=== PATIENT | female | born 1980 | race Caucasian/White ===

== ENCOUNTER 2017-03-30 08:34 | Inpatient (IN) | payer OTHER ==
--- NOTE | 2017-03-30 09:08 | OBPROG ---
Labor Progress Note Assessment/Plan: Assessment:irregular contractions pain well managed irregulkar contractions exam cl/th/high posterior soft ballotable on exam and leopolds cephalic nitrazine negative amnisure sent Plan:US wait for amnisure after these tests POC 03/30/17 09:07 Subjective/Intrapartum Course: 03/30/17 09:05 Patient came in with a complaint of srom at 0443 clear fluid described. States feeling positive movement. Denies bloody show. Denies regular painful contractions. Due for US today for growth. Will do here for mike and growth - SVE Dilation (cm): 0 Effacement (%): 0 Station: -3 - Contraction Pattern Assessment Current Contraction Pattern: Irregular - FHR Assessment Gonzalez FHR (bpm): 125 FHR Pattern Variability: Moderate FHR Category: 1 - Physical Exam General Appearance: WD/WN, alert, no apparent distress Respiratory: chest non-tender, lungs clear, normal breath sounds Cardiac/Chest: regular rate, rhythm Abdomen: normal bowel sounds Extremities: normal range of motion, Kera's sign (negative homens sign) Peripheral Pulses: 1+: carotid (R), carotid (L) (no clonus) Skin: normal color, warm/dry Neuro/Psych: no motor/sensory deficits, alert, normal mood/affect, oriented x 3 ICD10 Worksheet Patient Problems: Problems Problem Status Onset rom term/ labor check Acute
--- NOTE | 2017-03-30 09:57 | GHP ---
[f rep st] HISTORY AND PHYSICAL HISTORY OF PRESENT ILLNESS: The patient is a 36-year-old 1, para 0, with an EDC of 03/27/2017. This is 03/30/2017, so patient is 40-3/7 weeks, who comes in with complaints of rupture of membranes at 0443 this a.m. States feeling positive movement. Denies bloody show. Denies painful regular contractions. Feeling occasional tightening. Denies pain. The patient has been a routine patient of [facility] since early on in the at 8 weeks and 4 days. Had an early ultrasound which confirmed dates of 2016. MEDICAL HISTORY: History of anemia as a teen, anemic with at 34.6 at 28-week labs. SURGICAL HISTORY: Cholecystectomy in 2002. OTHER MEDICAL HISTORY: Patient is a vegetarian. HISTORY: Patient is AMA. The patient also had positive GBS in her urine so will be treated for GBS in . The patient was to have a growth ultrasound today for measuring large for dates. The patient came to Labor and Delivery for assessment of rupture of membranes so we will do growth ultrasound and CORINA here in Labor and Delivery. GYNECOLOGICAL HISTORY: History of OCP use, Depo-Provera, Mirena. Previous abnormal Paps. Had 1 or 2 of the Gardasil. Also has a history of candidiasis. SOCIAL HISTORY: Patient is . Denies tobacco history, drug history. ALLERGIES: NKDA. MEDICATIONS: Also vitamins with DHA. REVIEW OF SYSTEMS: Times 9 is benign. PHYSICAL EXAMINATION: GENERAL: The patient is awake, alert, oriented x3. LUNGS: Clear bilaterally. ABDOMEN: Bowel sounds are positive in all 4 quadrants. EXTREMITIES: DTRs are 1+ bilaterally. Homans sign is negative bilaterally. Patient denies PIH symptoms. PELVIC: Patient was closed, thick, high, posterior, soft, ballotable but cephalic on exam. Vault was dry. Nitrazine was negative. AmniSure was sent. LABS: Patient is AB positive. Antibody negative. RPR is nonreactive. Rubella is immune. Hepatitis is negative. HIV is negative. Carrier screening was negative. was negative. AFP was negative. Gonorrhea, chlamydia , and Pap were negative. 1-hour GTT was within normal limits. /[id number]/MODL MTDD
[2017-03-30] MEDS ORDERED: AMPICILLIN SODIUM 2 GM in NS 100 ML IV ONE (13:44)
[2017-03-30] MEDS ORDERED: TERBUTALINE SULFATE 1 MG/ML VIAL IV PRN (13:44)
[2017-03-30] MEDS ORDERED: EPSOM SALT 454 GM TP PRN (13:44)
[2017-03-30] MEDS ORDERED: LR 1,000 ML IV PRN (13:44)
[2017-03-30] MEDS ORDERED: OLIVE OIL 118 ML BTL MISC PRN (13:44)
[2017-03-30] MEDS ORDERED: OXYTOCIN/RINGERS LACTATE 1,000 ML IV PRN (13:44)
[2017-03-30] MEDS ORDERED: MISOPROSTOL 100 MCG TAB PO ONE (13:45)
--- NOTE | 2017-03-30 13:51 | OBPROG ---
Labor Progress Note Assessment/Plan: Assessment:irregular contractions pain well managed irregular contractions exam cl/th/high posterior soft ballotable on exam and leopolds cephalic 90% growth mike 9.7 discussed IOL cytotec, carbajal bulb, vs cervadil and carbajal bulb and pitocin patient and family verbalized understanding and desire to proceed with cytotec po consulted with physcian poc ok to proceed dr. eleuterio cook agrees with poc Plan:cytotec per protocol will begin with 50mcg 03/30/17 09:07 03/30/17 13:47 Subjective/Intrapartum Course: 03/30/17 09:05 Patient came in with a complaint of srom at 0443 clear fluid described. States feeling positive movement. Denies bloody show. Denies regular painful contractions. Due for US today for growth. Will do here for mike and growth 03/30/17 13:51 No change in patient demeanor. Agrees with poc to iol electively at 40.3 weeks ballotable 90% growth closed thick and high - SVE Dilation (cm): 0 Effacement (%): 0 Station: -3 Membranes: Intact - Contraction Pattern Assessment Current Contraction Pattern: Irregular - AP Antepartum Course: 40.3 ga today. early US has been with [facility] since early . Anxiety all else within normal limits. Today cervix remains closed thick high and posterior blattable. Consult with dr. eleuterio cook IOL 90% growth. Patient and family ok with POC IOl. 03/30/17 13:54 Oxytocin Orders Assessment - Pre-Induction/Augmentation Assessment Gestational Age: 40 week(s) and 3 day(s) ICD10 Worksheet Patient Problems: Problems Problem Status Onset rom term/ labor check Acute
[2017-03-30] MEDS ORDERED: AMMONIA AROMATIC 1 EACH AMP IH ONE (14:12)
[2017-03-30] MEDS ORDERED: LIDOCAINE 1% 300 MG/30 ML SDV ONE (14:12)
[2017-03-30] MEDS ORDERED: OLIVE OIL 118 ML BTL ONE (14:12)
[2017-03-30] MEDS ORDERED: TERBUTALINE SULFATE 1 MG/ML VIAL ONE (14:12)
[2017-03-30] MEDS ORDERED: MISOPROSTOL 200 MCG TAB ONE (14:13)
[2017-03-30] MEDS ORDERED: OXYTOCIN 10 UNIT/ML VIAL ONE (14:13)
[2017-03-30 14:45] LABS: % IMMATURE GRANULYOCYTES 0.9 % (0.0-1.1); ADD DIFF? NO; ADD MORPH? NO; ADD SCAN? NO; ATYPICAL LYMPHOCYTE FLAG 0 (0-99); FRAGMENT RBC FLAG 10 (0-99); HEMATOCRIT 41.2 % (38.0-47.0); HEMOGLOBIN 14.7 g/dL (12.6-16.3); LEFT SHIFT FLG 0 (0-99); LIPEMIA HEMOLYSIS FLAG 90 (0-99); MEAN CELL HEMOGLOBIN CONCENTR. 35.7 g/dL (32.4-36.7); MEAN CELL VOLUME 89.8 fL (81.5-99.8); MEAN PLATELET VOLUME 10.7 fL (8.7-11.7); PLATELET CLUMPS FLAG 10 (0-99); PLATELET COUNT 338 10^3/uL (150-400); RED BLOOD CELL COUNT 4.59 10^6/uL (4.18-5.33); RED CELL DISTRIBUTION WIDTH 13.3 % (11.5-15.2)
--- NOTE | 2017-03-30 18:15 | OBPROG ---
Labor Progress Note Assessment/Plan: Assessment:regular contractions q 3-4 minutes apart pain well managed cat 1 fhr exam /-1 90% growth mike 9.7 discussed IOL cytotec, carbajal bulb, vs cervadil and carbajal bulb and pitocin patient and family verbalized understanding and desire to proceed with cytotec po consulted with physcian poc ok to proceed dr. eleuterio cook agrees with poc able to place carbajal bulb without difficulty Plan:carbajal bulb placement/ low dose pitocin 03/30/17 09:07 03/30/17 13:47 03/30/17 18:15 Subjective/Intrapartum Course: cytotec 50mcg po x1 . Carbajal bulb placed at 3h after cytotec. exam 1cl/80/-1 cephalic tolerated procedure well. Will begin low dose pitocin per protocol 03/30/17 09:05 Patient came in with a complaint of srom at 0443 clear fluid described. States feeling positive movement. Denies bloody show. Denies regular painful contractions. Due for US today for growth. Will do here for mike and growth 03/30/17 13:51 No change in patient demeanor. Agrees with poc to iol electively at 40.3 weeks ballotable 90% growth closed thick and high 03/30/17 18:12 Feeling menstrual cramping. Coping well ready for carbajal placement. Objective: 03/30/17 14:00 Patient ABO/Rh AB POSITIVE 03/30/17 14:00 - SVE Membranes: Intact - Contraction Pattern Assessment Current Contraction Pattern: Regular, Irregular - FHR Assessment Gonzalez FHR (bpm): 140 FHR Pattern Variability: Moderate FHR Category: 1 - AP Antepartum Course: 40.3 ga today. early US has been with [facility] since early . Anxiety all else within normal limits. Today cervix remains closed thick high and posterior blattable. Consult with dr. eleuterio cook IOL 90% growth. Patient and family ok with POC IOl. 03/30/17 13:54 Oxytocin Orders Assessment - Pre-Induction/Augmentation Assessment Gestational Age: 40 week(s) and 3 day(s) ICD10 Worksheet Patient Problems: Problems Problem Status Onset rom term/ labor check Acute
[2017-03-30] MEDS ORDERED: OXYTOCIN 20 UNITS in LR 1,000 ML IV PRN (18:30)
[2017-03-30] MEDS ORDERED: OXYTOCIN 30 UNITS in LR 500 ML IV SCH (18:30)
--- NOTE | 2017-03-30 20:31 | OBPROG ---
Labor Progress Note Assessment/Plan: Assessment:regular contractions q 3-4 minutes apart pain well managed cat 1 fhr exam 4-5/80/-1 cephalic 90% growth mike 9.7 carbajal bulb dc'd with small amount of traction pitocin at 3mu will begin routine pitocin protocol Plan:pitocin per routine protocol 03/30/17 09:07 03/30/17 13:47 03/30/17 18:15 03/30/17 20:29 Subjective/Intrapartum Course: cytotec 50mcg po x1 . Carbajal bulb placed at 3h after cytotec. exam 1cl/80/-1 cephalic tolerated procedure well. Will begin low dose pitocin per protocol 03/30/17 09:05 Patient came in with a complaint of srom at 0443 clear fluid described. States feeling positive movement. Denies bloody show. Denies regular painful contractions. Due for US today for growth. Will do here for mike and growth 03/30/17 13:51 No change in patient demeanor. Agrees with poc to iol electively at 40.3 weeks ballotable 90% growth closed thick and high 03/30/17 18:12 Feeling menstrual cramping. Coping well ready for carbajal placement. Objective: 03/30/17 14:00 Patient ABO/Rh AB POSITIVE 03/30/17 14:00 - SVE Dilation (cm): 4, 5 Effacement (%): 80 Station: -1 Membranes: Intact - Contraction Pattern Assessment Current Contraction Pattern: Regular, Irregular - FHR Assessment Gonzalez FHR (bpm): 145 FHR Pattern Variability: Moderate FHR Category: 1 - AP Antepartum Course: 40.3 ga today. early US has been with [facility] since early . Anxiety all else within normal limits. Today cervix remains closed thick high and posterior blattable. Consult with dr. eleuterio cook IOL 90% growth. Patient and family ok with POC IOl. 03/30/17 13:54 Oxytocin Orders Assessment - Pre-Induction/Augmentation Assessment Gestational Age: 40 week(s) and 3 day(s) ICD10 Worksheet Patient Problems: Problems Problem Status Onset rom term/ labor check Acute
[2017-03-30] MEDS: AMPICILLIN SODIUM 1 GM in NS 100 ML IV SCH (21:46)
[2017-03-30] MEDS ORDERED: BUPIVACAINE 0.25% 30 ML SDV ONE (22:13)
[2017-03-30] MEDS ORDERED: fentaNYL 2MCG/ML/BUP 0.1% RTU 100 ML BAG EP ONE (22:13)
[2017-03-30] MEDS ORDERED: PHENYLEPHRINE HCL 100 MCG/ML SYR ONE (22:13)
[2017-03-30] MEDS ORDERED: fentaNYL 100 MCG/2 ML INJ ONE (22:14)
--- NOTE | 2017-03-30 23:07 | PREANESOB ---
Obstetric Pre-Anesthesia Info - General Info Proposed Procedure: labor : 1 Para: 0 CY: 03/27/17 Gestational Age: 40 week(s) and 3 day(s) - Info Status: Full Term Monitors: External FHR Pattern: Reassuring - Labor Status Cervical Dilation per last OB SVE: 4, 5 Station per last OB SVE: -1 Pitocin: In Use Indications for Labor Analgesia: Augmentation of Labor, Pain Control Labor Epidural: Yes Anesthesia Allergies/Adverse Reactions: Allergy/AdvReac Type Severity Reaction Status Date / Time No Known Allergies Allergy Unverified 03/30/17 08:58 Visit Medications: Generic Name Dose Route Start Last Admin Trade Name Freq PRN Reason Stop Dose Admin Ampicillin Sodium 1 gm/ Sodium 100 mls @ 200 mls/hr 03/30/17 17:45 Chloride IV 04/29/17 17:44 Q4H [facility] Protocol Lactated Ringer's 1,000 mls @ 0 mls/hr 03/30/17 13:44 03/30/17 21:36 Lr IV 09/26/17 13:43 1,000 mls PRN PRN Administration SEE PROTOCOL CONDITIONS Protocol Per Protocol Oxytocin 20 units/ Lactated 1,002 mls @ 150 mls/hr 03/30/17 18:30 Ringer's IV PRN PRN Post- bleeding Oxytocin 30 units/ Lactated 503 mls @ 0 mls/hr 03/30/17 18:30 Ringer's IV 09/26/17 18:29 CONT [facility] Protocol As Directed Ibuprofen 600 mg 03/30/17 13:44 Motrin PO 09/26/17 13:43 Q6HRS PRN post , inflammation Magnesium Sulfate 454 gm 03/30/17 13:44 Epsom Salt TP 09/26/17 13:43 Q1H PRN perineal discomfort Sinking Spring Oil 118 ml 03/30/17 13:44 Sweet Oil MISC 09/26/17 13:43 ONCE PRN perineal massage Terbutaline Sulfate 0.25 mg 03/30/17 13:44 Brethine IV 09/26/17 13:43 ONCE PRN Tachysystole Discontinued Medications Generic Name Dose Route Start Last Admin Trade Name Freq PRN Reason Stop Dose Admin Ammonia (Aromatic Spirit) Confirm 03/30/17 14:12 Ammonia Aromatic Administered 03/30/17 14:13 Dose 1 each IH .STK-MED ONE Bupivacaine HCl Confirm 03/30/17 22:13 Sensorcaine 0.25% Sdv Administered 03/30/17 22:14 Dose 30 ml .ROUTE .STK-MED ONE Ephedrine Sulfate Confirm 03/30/17 14:12 Ephedrine Sulfate Administered 03/30/17 14:13 Dose 50 mg .ROUTE .STK-MED ONE Fentanyl Confirm 03/30/17 22:14 Sublimaze Administered 03/30/17 22:15 Dose 100 mcg .ROUTE .STK-MED ONE Fentanyl/Bupivacaine HCl Confirm 03/30/17 22:13 Fentanyl/Bupivacaine/Ns 2 Mcg/Ml 0.1% (Premix Administered 03/30/17 22:14 Dose 100 ml EP .STK-MED ONE Ampicillin Sodium 2 gm/ Sodium 110 mls @ 220 mls/hr 03/30/17 13:44 03/30/17 21:35 Chloride IV 03/30/17 14:13 110 mls ONCE ONE Administration Protocol Oxytocin/Lactated Ringer's 1,000 mls @ 150 mls/hr 03/30/17 13:44 Pitocin 20 Units/Lr (Premix) IV PRN PRN Post- bleeding Lidocaine HCl Confirm 03/30/17 14:12 Lidocaine Hcl 1% Administered 03/30/17 14:13 Dose 300 mg .ROUTE .STK-MED ONE Misoprostol 50 mcg 03/30/17 13:45 03/30/17 14:21 Cytotec PO 03/30/17 13:46 50 mcg ONCE ONE Administration Misoprostol Confirm 03/30/17 14:13 Cytotec Administered 03/30/17 14:14 Dose 800 mcg .ROUTE .STK-MED ONE Sinking Spring Oil Confirm 03/30/17 14:12 Sweet Oil Administered 03/30/17 14:13 Dose 118 ml .ROUTE .STK-MED ONE Oxytocin Confirm 03/30/17 14:13 Pitocin Administered 03/30/17 14:14 Dose 40 unit .ROUTE .STK-MED ONE Phenylephrine HCl Confirm 03/30/17 22:13 Neosynephrine Administered 03/30/17 22:14 Dose 1,000 mcg .ROUTE .STK-MED ONE Terbutaline Sulfate Confirm 03/30/17 14:12 Brethine Administered 03/30/17 14:13 Dose 1 mg .ROUTE .STK-MED ONE - Anesthesia History Response to Local Anesthetics: Normal Anesthesia & Operative History: No Prior Problems (cholecystectomy) Family Anesthesia History: Negative - Social History Substance Use/Abuse: Denies - Vital Signs Height/Weight (Nursing): Height 165.1 cm Weight 86.636 kg Weight: 86.636 kg Height: 165.1 cm - Focused Exam Neck exam: FROM, increased neck circumference Pulmonary: no respiratory distress Cardiovascular: regular rate and rhythym Labs: 03/30/17 14:00 Patient ABO/Rh AB POSITIVE 03/30/17 14:00 - Plan Anesthetic Plan: epidural Consent Signed and on Chart: Yes Patient/Guardian Understands and Agrees to Plan: Yes Urgent/Emergent Case: Jeffrey hopkins completed preop but documented later for safe timely pt care General Comments: see also paper anesth eval for more complete version than meditech allows
[2017-03-30] MEDS ORDERED: NALOXONE HCL 0.4 MG/ML INJ IVP PRN (23:13)
[2017-03-30] MEDS ORDERED: ONDANSETRON 4 MG/2 ML VIAL IVP PRN (23:13)
[2017-03-30] MEDS ORDERED: PHENYLEPHRINE HCL 100 MCG/ML SYR IVP PRN (23:13)
--- NOTE | 2017-03-30 23:17 | OBPROG ---
Labor Progress Note Assessment/Plan: Assessment:regular contractions q 1-2/ tripling/ doubling pain well managed walking and in tub intially cat 2 fhr exam 5/100/0 cephalic 90% growth mike 9.7 pitocin at 10 mu to off srom clear fluid epidural in place for pain relief Plan:pitocin per routine protocol/ epidural for pain relief expectant management of labor 03/30/17 09:07 03/30/17 13:47 03/30/17 18:15 03/30/17 20:29 03/30/17 23:14 Subjective/Intrapartum Course: cytotec 50mcg po x1 . Carbajal bulb placed at 3h after cytotec. exam 1cl/80/-1 cephalic tolerated procedure well. Will begin low dose pitocin per protocol 03/30/17 09:05 Patient came in with a complaint of srom at 0443 clear fluid described. States feeling positive movement. Denies bloody show. Denies regular painful contractions. Due for US today for growth. Will do here for mike and growth 03/30/17 13:51 No change in patient demeanor. Agrees with poc to iol electively at 40.3 weeks ballotable 90% growth closed thick and high 03/30/17 18:12 Feeling menstrual cramping. Coping well ready for carbajal placement. Objective: 03/30/17 14:00 Patient ABO/Rh AB POSITIVE 03/30/17 14:00 - SVE Membranes: Intact - Contraction Pattern Assessment Current Contraction Pattern: Regular, Irregular - FHR Assessment Gonzalez FHR (bpm): 160 FHR Pattern Variability: Moderate FHR Category: 2 - AP Antepartum Course: 40.3 ga today. early US has been with [facility] [place] since early . Anxiety all else within normal limits. Today cervix remains closed thick high and posterior blattable. Consult with dr. eleuterio cook IOL 90% growth. Patient and family ok with POC IOl. 03/30/17 13:54 Oxytocin Orders Assessment - Pre-Induction/Augmentation Assessment Gestational Age: 40 week(s) and 3 day(s) ICD10 Worksheet Patient Problems: Problems Problem Status Onset rom term/ labor check Acute
[2017-03-30] MEDS ORDERED: LR 500 ML IV SCH (23:30)
[2017-03-30] MEDS ORDERED: fentaNYL 2MCG/ML/BUP 0.1% RTU 100 ML EP SCH (23:30)
[2017-03-31] MEDS ORDERED: ACETAMINOPHEN 500 MG TAB PO ONE ×2 (00:44→09:45)
[2017-03-31] MEDS: AMPICILLIN SODIUM 1 GM in NS 100 ML IV SCH ×3 (02:05→18:31)
--- NOTE | 2017-03-31 02:40 | OBPROG ---
Labor Progress Note Assessment/Plan: Assessment:regular contractions q 2-3 cat 2 fhr exam 7/100/0 cephalic 90% growth mike 9.7 pitocin at 8mu srom clear fluid epidural working well pain well managed Plan:pitocin per routine protocol/ epidural for pain relief expectant management of labor 03/30/17 09:07 03/30/17 13:47 03/30/17 18:15 03/30/17 20:29 03/30/17 23:14 03/31/17 02:38 Subjective/Intrapartum Course: cytotec 50mcg po x1 . Carbajal bulb placed at 3h after cytotec. exam 1cl/80/-1 cephalic tolerated procedure well. Will begin low dose pitocin per protocol 03/30/17 09:05 Patient came in with a complaint of srom at 0443 clear fluid described. States feeling positive movement. Denies bloody show. Denies regular painful contractions. Due for US today for growth. Will do here for mike and growth 03/30/17 13:51 No change in patient demeanor. Agrees with poc to iol electively at 40.3 weeks ballotable 90% growth closed thick and high 03/30/17 18:12 Feeling menstrual cramping. Coping well ready for carbajal placement. 03/31/17 02:40 doing well with the epidural . Pain well managed Objective: 03/30/17 14:00 Patient ABO/Rh AB POSITIVE 03/30/17 14:00 - SVE Dilation (cm): 7 Effacement (%): 100 Station: 0 Membranes: SROM Amniotic Fluid Color: Clear - Contraction Pattern Assessment Current Contraction Pattern: Regular, Irregular - AP Antepartum Course: 40.3 ga today. early US has been with [facility] since early . Anxiety all else within normal limits. Today cervix remains closed thick high and posterior blattable. Consult with dr. eleuterio cook IOL 90% growth. Patient and family ok with POC IOl. 03/30/17 13:54 Oxytocin Orders Assessment - Pre-Induction/Augmentation Assessment Gestational Age: 40 week(s) and 3 day(s) ICD10 Worksheet Patient Problems: Problems Problem Status Onset rom term/ labor check Acute
--- NOTE | 2017-03-31 05:51 | OBPROG ---
Labor Progress Note Assessment/Plan: Assessment:regular contractions q 2-3 cat 2 fhr exam 6-7/80/0 cephalic caput and molding pitocin to 10 mu tachysystole and then to 5mu adequete pattern until pitocin decreased and now mvus are 129 clear fluid continues epidural working well pain well managed questioning whether baby can fit Plan:consult with dr. eleuterio cook. 03/30/17 09:07 03/30/17 13:47 03/30/17 18:15 03/30/17 20:29 03/30/17 23:14 03/31/17 02:38 03/31/17 05:48 Subjective/Intrapartum Course: cytotec 50mcg po x1 . Carbajal bulb placed at 3h after cytotec. exam 1cl/80/-1 cephalic tolerated procedure well. Will begin low dose pitocin per protocol 03/30/17 09:05 Patient came in with a complaint of srom at 0443 clear fluid described. States feeling positive movement. Denies bloody show. Denies regular painful contractions. Due for US today for growth. Will do here for mike and growth 03/30/17 13:51 No change in patient demeanor. Agrees with poc to iol electively at 40.3 weeks ballotable 90% growth closed thick and high 03/30/17 18:12 Feeling menstrual cramping. Coping well ready for carbajal placement. 03/31/17 02:40 doing well with the epidural . Pain well managed Objective: 03/30/17 14:00 Patient ABO/Rh AB POSITIVE 03/30/17 14:00 - SVE Dilation (cm): 6, 7 Effacement (%): 80 Station: 0 Membranes: SROM Amniotic Fluid Color: Clear - Contraction Pattern Assessment Current Contraction Pattern: Regular - AP Antepartum Course: 40.3 ga today. early US has been with [facility] since early . Anxiety all else within normal limits. Today cervix remains closed thick high and posterior blattable. Consult with dr. eleuterio cook IOL 90% growth. Patient and family ok with POC IOl. 03/30/17 13:54 Oxytocin Orders Assessment - Pre-Induction/Augmentation Assessment Gestational Age: 40 week(s) and 3 day(s) ICD10 Worksheet Patient Problems: Problems Problem Status Onset rom term/ labor check Acute
--- NOTE | 2017-03-31 06:24 | OBPROG ---
Labor Progress Note Assessment/Plan: Assessment: 36 y/o @ 40 4/7 wks with LGA fetus for IOL Plan: s/p Cytotec x 1, carbajal bulb, low dose Pitocin and now currently on 8 mu of Pitocin FHTs - Cat II strip with intermittent variable decels IUPC was placed about 4 hours ago and mostly adequate but Pitocin was turned down by half secondary to tachysystole On exam, there is caput noted but she is about 8 cm Will try to titer Pitocin to get adequate ctx's and reassess in 2 hours GBS +, s/p abx x 3 doses 03/31/17 06:26 Subjective/Intrapartum Course: cytotec 50mcg po x1 . Carbajal bulb placed at 3h after cytotec. exam 1cl/80/-1 cephalic tolerated procedure well. Will begin low dose pitocin per protocol 03/30/17 09:05 Patient came in with a complaint of srom at 0443 clear fluid described. States feeling positive movement. Denies bloody show. Denies regular painful contractions. Due for US today for growth. Will do here for mike and growth 03/30/17 13:51 No change in patient demeanor. Agrees with poc to iol electively at 40.3 weeks ballotable 90% growth closed thick and high 03/30/17 18:12 Feeling menstrual cramping. Coping well ready for carbajal placement. 03/31/17 02:40 doing well with the epidural . Pain well managed 03/31/17 06:25 She is c/o MELVIN, but she already received Tylenol at 0300. Objective: 03/30/17 14:00 Patient ABO/Rh AB POSITIVE 03/30/17 14:00 - SVE Dilation (cm): 8 Effacement (%): 90 Station: 0 Membranes: SROM Amniotic Fluid Color: Clear - Contraction Pattern Assessment Current Contraction Pattern: Regular - FHR Assessment Gonzalez FHR (bpm): 140 FHR Pattern Variability: Moderate FHR Category: 2 (Intermittent variable decels noted) - AP Antepartum Course: 40.3 ga today. early US has been with [facility] since early . Anxiety all else within normal limits. Today cervix remains closed thick high and posterior ballotable. Consult with dr. Tati Revoal IOL 90% growth. Patient and family ok with POC IOl. 03/30/17 13:54 03/31/17 06:28 Oxytocin Orders Assessment - Pre-Induction/Augmentation Assessment Gestational Age: 40 week(s) and 3 day(s) ICD10 Worksheet Patient Problems: Problems Problem Status Onset rom term/ labor check Acute
--- NOTE | 2017-03-31 09:13 | OBPROG ---
Labor Progress Note Assessment/Plan: Assessment: Plan: Subjective/Intrapartum Course: cytotec 50mcg po x1 . Carbajal bulb placed at 3h after cytotec. exam 1cl/80/-1 cephalic tolerated procedure well. Will begin low dose pitocin per protocol 03/30/17 09:05 Patient came in with a complaint of srom at 0443 clear fluid described. States feeling positive movement. Denies bloody show. Denies regular painful contractions. Due for US today for growth. Will do here for mike and growth 03/30/17 13:51 No change in patient demeanor. Agrees with poc to iol electively at 40.3 weeks ballotable 90% growth closed thick and high 03/30/17 18:12 Feeling menstrual cramping. Coping well ready for carbajal placement. 03/31/17 02:40 doing well with the epidural . Pain well managed 03/31/17 06:25 She is c/o MELVIN, but she already received Tylenol at 0300. 03/31/17 09:10 patient examined at 7 am when i arrived. I examined her and she is 6-7/80/-2. Long discussion with patient. contractions were not adequate. pitocin had been stopped overnight due to tachysystole. havent been adequate yet. patient is exhausted but comfortable. has been able to sleep. discussed management options. will continue to increase pitocin and reexamine in several hours or sooner if indicated. Objective: 03/30/17 14:00 Patient ABO/Rh AB POSITIVE 03/30/17 14:00 - SVE Dilation (cm): 6, 7 Effacement (%): 80 Station: -2 Membranes: SROM Amniotic Fluid Color: Clear - Contraction Pattern Assessment Current Contraction Pattern: Regular - FHR Assessment Gonzalez FHR (bpm): 160 FHR Pattern Variability: Moderate FHR Category: 1 - AP Antepartum Course: 40.3 ga today. early US has been with [facility] early . Anxiety all else within normal limits. Today cervix remains closed thick high and posterior ballotable. Consult with dr. Tati Tomas IOL 90% growth. Patient and family ok with POC IOl. 03/30/17 13:54 03/31/17 06:28 Oxytocin Orders Assessment - Pre-Induction/Augmentation Assessment Gestational Age: 40 week(s) and 3 day(s) ICD10 Worksheet Patient Problems: Problems Problem Status Onset rom term/ labor check Acute
[2017-03-31] MEDS ORDERED: CEFAZOLIN 2 GM/DEXTROSE/100 ML BAG IV ONE (10:54)
[2017-03-31] MEDS ORDERED: fentaNYL 100 MCG/2 ML INJ ONE (11:07)
[2017-03-31] MEDS ORDERED: LIDO/EPI 2% **for epidural** 20 ML SDV ONE (11:07)
--- NOTE | 2017-03-31 11:28 | OBPROG ---
Labor Progress Note Assessment/Plan: Assessment: Plan: Subjective/Intrapartum Course: cytotec 50mcg po x1 . Carbajal bulb placed at 3h after cytotec. exam 1cl/80/-1 cephalic tolerated procedure well. Will begin low dose pitocin per protocol 03/30/17 09:05 Patient came in with a complaint of srom at 0443 clear fluid described. States feeling positive movement. Denies bloody show. Denies regular painful contractions. Due for US today for growth. Will do here for mike and growth 03/30/17 13:51 No change in patient demeanor. Agrees with poc to iol electively at 40.3 weeks ballotable 90% growth closed thick and high 03/30/17 18:12 Feeling menstrual cramping. Coping well ready for carbajal placement. 03/31/17 02:40 doing well with the epidural . Pain well managed 03/31/17 06:25 She is c/o MELVIN, but she already received Tylenol at 0300. 03/31/17 09:10 patient examined at 7 am when i arrived. I examined her and she is 6-7/80/-2. Long discussion with patient. contractions were not adequate. pitocin had been stopped overnight due to tachysystole. havent been adequate yet. patient is exhausted but comfortable. has been able to sleep. discussed management options. will continue to increase pitocin and reexamine in several hours or sooner if indicated. 03/31/17 11:24 pitocin is at 20 mu. having regular contractions with occasional spacing. IUPC doesnt seem to be adequately calculating MVU's. SVE 6/80/-2. long discussion with patient about options. patient is ready to be done. discussed status is reassuring but we are having a hard time getting contractions adequate. does not want to continue trying. desires PLTCS. due to suspected CPD will proceed with PLTCS. Objective: 03/30/17 14:00 Patient ABO/Rh AB POSITIVE 03/30/17 14:00 - SVE Dilation (cm): 6 Effacement (%): 80 Station: -2 Membranes: SROM Amniotic Fluid Color: Clear - Contraction Pattern Assessment Current Contraction Pattern: Regular - FHR Assessment Gonzalez FHR Pattern Variability: Moderate FHR Category: 1 - AP Antepartum Course: 40.3 ga today. early US has been with [facility] since early . Anxiety all else within normal limits. Today cervix remains closed thick high and posterior ballotable. Consult with dr. Tati Tomas IOL 90% growth. Patient and family ok with POC IOl. 03/30/17 13:54 03/31/17 06:28 Oxytocin Orders Assessment - Pre-Induction/Augmentation Assessment Gestational Age: 40 week(s) and 3 day(s) ICD10 Worksheet Patient Problems: Problems Problem Status Onset rom term/ labor check Acute
[2017-03-31] MEDS ORDERED: DEXAMETHASONE 4 MG/ML VIAL ONE (11:48)
[2017-03-31] MEDS ORDERED: ONDANSETRON 4 MG/2 ML VIAL ONE (11:49)
[2017-03-31] MEDS ORDERED: morphINE PF 5 MG/10 ML INJ ONE (11:50)
[2017-03-31] MEDS ORDERED: SCOPOLAMINE HYDROBROMIDE 1 MG/3 DAYS PATCH TD ONE ×2 (12:19→15:05)
[2017-03-31] MEDS ORDERED: BISACODYL 10 MG SUPP PR PRN (14:31)
[2017-03-31] MEDS ORDERED: PROMETHAZINE HCL 25 MG/ML INJ IVP PRN (14:31)
[2017-03-31] MEDS ORDERED: ACETAMINOPHEN 325 MG TAB PO PRN (14:31)
[2017-03-31] MEDS ORDERED: LACTULOSE 20 GM/30 ML UDCUP PO PRN (14:31)
[2017-03-31] MEDS ORDERED: MAGNESIUM HYDROXIDE 30 ML UDCUP PO PRN (14:31)
[2017-03-31] MEDS ORDERED: POLYETHYLENE GLYCOL 3350 17 GM PKT PO PRN (14:31)
[2017-03-31] MEDS ORDERED: SIMETHICONE 80 MG TAB CHEW PO PRN (14:31)
--- NOTE | 2017-03-31 14:40 | OBDEL ---
Info Type: Primary Presentation at Delivery: Vertex L&D Analgesia/Anesthesia Type: Epidural GBS+: No Intrapartum Medications: Generic Name Dose Route Start Last Admin Trade Name Freq PRN Reason Stop Dose Admin Ampicillin Sodium 1 gm/ Sodium 100 mls @ 200 mls/hr 03/30/17 17:45 03/31/17 10:00 Chloride IV 04/29/17 17:44 100 mls Q4H SIMÓN Administration Protocol Lactated Ringer's 1,000 mls @ 0 mls/hr 03/30/17 13:44 03/30/17 21:36 Lr IV 09/26/17 13:43 1,000 mls PRN PRN Administration SEE PROTOCOL CONDITIONS Protocol Per Protocol Discontinued Medications Generic Name Dose Route Start Last Admin Trade Name Freq PRN Reason Stop Dose Admin Acetaminophen 1,000 mg 03/31/17 00:44 03/31/17 00:50 Tylenol PO 03/31/17 00:45 1,000 mg ONCE ONE Administration Acetaminophen 1,000 mg 03/31/17 09:45 03/31/17 10:35 Tylenol PO 03/31/17 09:46 1,000 mg ONCE ONE Administration Ampicillin Sodium 2 gm/ Sodium 110 mls @ 220 mls/hr 03/30/17 13:44 03/30/17 21:35 Chloride IV 03/30/17 14:13 110 mls ONCE ONE Administration Protocol Misoprostol 50 mcg 03/30/17 13:45 03/30/17 14:21 Cytotec PO 03/30/17 13:46 50 mcg ONCE ONE Administration - Hospital Course Intrapartum: cytotec 50mcg po x1 . Carbajal bulb placed at 3h after cytotec. exam 1cl/80/-1 cephalic tolerated procedure well. Will begin low dose pitocin per protocol 03/30/17 09:05 Patient came in with a complaint of srom at 0443 clear fluid described. States feeling positive movement. Denies bloody show. Denies regular painful contractions. Due for US today for growth. Will do here for mike and growth 03/30/17 13:51 No change in patient demeanor. Agrees with poc to iol electively at 40.3 weeks ballotable 90% growth closed thick and high 03/30/17 18:12 Feeling menstrual cramping. Coping well ready for carbajal placement. 03/31/17 02:40 doing well with the epidural . Pain well managed 03/31/17 06:25 She is c/o MELVIN, but she already received Tylenol at 0300. 03/31/17 09:10 patient examined at 7 am when i arrived. I examined her and she is 6-7/80/-2. Long discussion with patient. contractions were not adequate. pitocin had been stopped overnight due to tachysystole. havent been adequate yet. patient is exhausted but comfortable. has been able to sleep. discussed management options. will continue to increase pitocin and reexamine in several hours or sooner if indicated. 03/31/17 11:24 pitocin is at 20 mu. having regular contractions with occasional spacing. IUPC doesnt seem to be adequately calculating MVU's. SVE 6/80/-2. long discussion with patient about options. patient is ready to be done. discussed status is reassuring but we are having a hard time getting contractions adequate. does not want to continue trying. desires PLTCS. due to suspected CPD will proceed with PLTCS. Indications for Delivery: Suspected Macrosomia Vaginal Delivery - Labor and Delivery Amniotic Fluid Color: Clear Operative Report - Delivery Pre-op Diagnoses: IUP 40 4/7 weeks, arrest of dilation and descent Post-op Diagnoses: same as preop plus occiput posterior History of Prior Section: No Nulliparous Prior to Delivery: Yes Indications for Current Section: Arrest of Descent, Arrest of Dilation Surgeon: Ling Francis Final Inspection Supervisor: Virginia Hoover Anesthesiologist: Siva Doherty Complications: Nucal Cord, Other (Specify) (post atony treated with methergine x 1, distended bladder) EBL: 1000 Data Gonzalez Delivery Date: 03/31/17 Delivery Time: 11:56 CY: 03/27/17 Gestational Age: 40 week(s) and 4 day(s) Sex of Infant: Female Score (1 Min): 8 Score (5 Min): 9 ICD10 Worksheet Patient Problems: Problems Problem Status Onset rom term/ labor check Acute
[2017-03-31] MEDS ORDERED: KETOROLAC 30 MG/1 ML SDV ONE (14:44)
[2017-03-31] MEDS ORDERED: PHENYLEPHRINE HCL 100 MCG/ML SYR IVP PRN (14:53)
[2017-03-31] MEDS ORDERED: ONDANSETRON 4 MG/2 ML VIAL IVP PRN (14:53)
[2017-03-31] MEDS ORDERED: NALOXONE HCL 0.4 MG/ML INJ IVP PRN (14:53)
[2017-03-31] MEDS: KETOROLAC 30 MG/1 ML SDV IVP SCH ×2 (14:56→21:00)
--- NOTE | 2017-03-31 15:03 | POSTANESTH ---
Post Anesthetic Evaluation Cardiovascular Status: Normal, Stable Respiratory Status: Normal, Stable Level of Consciousness/Mental Status: Can Participate in Eval Pain Control: Adequate, Prn Tx Ordered Nausea/Vomiting Control: Adequate, Prn Tx Ordered Complications Possibly Related to Anesthesia: None Noted (Epidural dosed for C Section, to OR, BP treated, comfortable for surgery, to PACU, no pain or nausea. )
[2017-03-31] MEDS: HYDROCODONE/APAP 5/325 TAB PO PRN (18:15)
[2017-03-31] MEDS ORDERED: ceFAZolin 2 GM/DEXTROSE 100 ML IV ONE (18:17)
--- NOTE | 2017-03-31 18:28 | OBPP ---
Progress Note Assessment/Plan: Assessment: pod# 0 2/p PLTCS arrest of descent and dilation breast feeding bladder very cephalad noted at time of delivery Plan: routine post care 03/31/17 18:25 Subjective/ Course: 03/31/17 18:27 patient is doing well. pain is well controlled. normal lochia. working on breast feeding. tolerating clears. resting in bed. denies headache and changes in vision. Objective: 03/30/17 14:00 Patient ABO/Rh AB POSITIVE 03/30/17 14:00 Temp Pulse Resp BP Pulse Ox 37.3 C 82 16 105/74 95 03/31/17 18:00 03/31/17 18:00 03/31/17 18:00 03/31/17 18:00 03/31/17 18:00 Physical Exam - Physical Exam Neck: non-tender, full range of motion, supple Respiratory: chest non-tender, lungs clear, normal breath sounds Cardiac/Chest: normal peripheral pulses, regular rate, rhythm Abdomen: normal bowel sounds, non-tender Extremities: normal range of motion, non-tender, normal inspection, normal capillary refill Skin: normal color, warm/dry Neuro/Psych: no motor/sensory deficits, alert, normal mood/affect, oriented x 3
--- NOTE | 2017-03-31 20:41 | GOP ---
[f rep st] OPERATIVE REPORT DATE OF OPERATION: 03/31/2017 SURGEON: Ling Francis DO FRAME CHANGER: CHAVEZ Cardoso. ANESTHESIA: Epidural. ANESTHESIOLOGIST: Siva Doherty MD. PREOPERATIVE DIAGNOSIS: 1. Intrauterine at 40 and 4/7 weeks' gestation. 2. Arrest of dilation. 3. Arrest of descent. POSTOPERATIVE DIAGNOSIS: 1. Intrauterine at 40 and 4/7 weeks' gestation. 2. Arrest of dilation. 3. Arrest of descent. 4. Occiput posterior. 5. atony treated with Methergine x1. PROCEDURE PERFORMED: Primary low transverse section. FINDINGS: 1. Viable 8 pounds 2 ounce female infant in the occiput posterior presentation delivered at 11:56 a. m., Apgars 8 and 9. 2. Normal ovaries, uterus and tubes. 3. Distended, very cephalad bladder. ESTIMATED BLOOD LOSS: 1000 cc. INDICATIONS: Patient is a 36-year-old 1, para 0, who is 40 and 4/7 weeks' gestation. She bowens d spontaneous rupture of membranes at 4:30 in the morning on March 30. She had been followed in he r OB care for size greater than dates. Last estimated weight was in the 90th percentile. The patient's cervix was noted to be long and closed, but she was noted to be grossly ruptured. Manageme nt options were reviewed, as patient was not in labor on arrival. She was started on antibiotics for group beta strep prophylaxis. She was given p.o. Cytotec 50 mcg and then ultimately had a Potter cat heter placed and then was started on low-dose Pitocin. Patient progressed into labor. She received an epidural which provided adequate pain relief. The patient does have an IUPC placed to assist in m onitoring contractions, as her cervix was not continuing to change past 6 cm. The patient's contract ions were adequate and she then began having hyperstimulation, so the Pitocin was discontinued at mal t point. After that point, they had a hard time getting contractions to be adequate again. The pat ient progressed to 6-7 cm dilated, 80% effaced, and -2 station. Despite regular contractions that we re not quite adequate, patient did not make any cervical change past 6 cm after having regular contra ctions for many, many hours. A long discussion was had with the patient and management options of co ntinued management with Pitocin and going over 20 milliunits was discussed with the patient, as well as proceeding with a primary low transverse section. She was re-examined several hours late r, and change in her cervix was noted. Decision was made to proceed with a primary low transverse ce sarean section. Risks and benefits were extensively reviewed with the patient. The patient was prop erly consented. DESCRIPTION OF PROCEDURE: Patient was taken into the operating room with intravenous fluids in place . She was given 2 g of Ancef intravenously. Her epidural was bolused. Venodynes were placed on her lower extremities and a Potter catheter was already in place. She was then prepped and draped in the normal sterile fashion. Anesthesia was assessed and found to be adequate. A Pfannenstiel skin inci semaj was then made 2 fingerbreadths above the pubic symphysis. The incision was then carried through to the underlying layer of fascia with the Bovie. The fascia was then nicked in the midline and the fascial incision was extended laterally. The superior aspect of the fascial incision was then grasp ed with Sd's, tented up and the underlying rectus muscle dissected off bluntly with the Bovie. A ttention was then turned to the inferior aspect of the fascial incision, which in a similar fashion w as grasped with Sd's, tented up and the underlying rectus muscle dissected off bluntly with the B ovie. The rectus muscle was then in the midline. The peritoneum was then identified and v kings superior and cephalad as was suspected of having a very high bladder was noted. I bluntly into t he peritoneum and confirmed that the bladder had migrated very cephalad. The peritoneal incision was extended superiorly and inferiorly with excellent visualization of the bladder. The bladder blade w as then inserted and again the uterus was noted to be grossly cephalad. The peritoneum was then iden tified, tented up, and entered sharply with the Metzenbaum scissors. The incision was extended later ally and a bladder flap was created digitally. The bladder blade was then reinserted. The uterus wa s then incised in a low transverse fashion with a scalpel, remote from the bladder site. The uterine incision was extended laterally. The 's head was delivered through the incision. It was note d to be in the occiput posterior presentation. The remainder of the 8 pounds 2 ounce viable w as then delivered through the incision without difficulty. The baby was dried and stimulated on the field. Delayed cord clamping x1 minute. The cord was then clamped x2 and cut. Cord blood was obtai aris. The infant was handed off to waiting nurse practitioner. Intact placenta with 3-vesse l cord delivered without difficulty. The uterus was then exteriorized and cleared of all clots and d ebris and wrapped in a moist laparotomy sponge. The uterine incision was then closed with 0 Vicryl i n a running locked fashion. A 2nd 0 Vicryl suture was then used to imbricate the uterine incision. Hemostasis of the of the hysterotomy was achieved. The bladder was noted to be remote from the site, but on evaluation of the reflection between the lower uterine segment and the bladder, there was a b leeding bladder pillar which was suture ligated with 0 Vicryl. Hemostasis was assured with this. Th ere was some oozing from the peritoneum on the bladder. Ramona powder was applied and no pooling of bleeding was noted, and hemostasis of the hysterotomy and the bladder pedicle were maintained. The u terus had been returned to the patient's abdomen. The gutters were cleared of all clots and debris. The peritoneum was then reapproximated with 3-0 Vicryl in a running fashion. Rectus muscle was reap proximated with 2-0 Vicryl in a running fashion. Fascia was closed with 0 Vicryl in a running fashio n. 2-0 Vicryl suture was used to reapproximate the Tyesha's tissue, and subcuticular fascia was clos ed with 3-0 Vicryl in a running fashion. The sponge, lap, needle counts were correct x2. The patien t was then taken to the recovery room in stable condition. /[id number]/MODL
[2017-03-31] MEDS: SENNOSIDES/DOCUSATE SODIUM TAB PO SCH (21:00)
[2017-04-01] MEDS: KETOROLAC 30 MG/1 ML SDV IVP SCH ×2 (02:56→09:37)
--- NOTE | 2017-04-01 08:20 | OBPP ---
Progress Note Assessment/Plan: Assessment: 36 yo WF POD#1 s/p 1CD for arrest of descent during 2nd stage with post-op anemia, doing well. Plan: Routine post-op/ care. Encourage ambulation, shower. De-line and advance diet, activity as tolerated. 04/01/17 08:16 04/01/17 08:22 Subjective/ Course: 03/31/17 18:27 patient is doing well. pain is well controlled. normal lochia. working on breast feeding. tolerating clears. resting in bed. denies headache and changes in vision. 04/01/17 08:18 Patient is resting in bed. . Pain OK with IV meds. Potter anchored. Denies spontaneous flatus. Tolerating PO intake. Minimal lochia/vaginal bleeding. Ambulated out of bed x2 since OR. Objective: 04/01/17 05:00 Patient ABO/Rh AB POSITIVE 03/30/17 14:00 Temp Pulse Resp BP Pulse Ox 36.8 C 87 16 90/58 L 95 04/01/17 05:00 04/01/17 05:00 04/01/17 00:05 04/01/17 05:00 04/01/17 05:00 VSS NAD Lungs clear in all renae Heart RRR Abdomen soft, appropriately tender, incision C/D/I Fundus firm Extremities: No excessive edema Hct: 41.2 (pre-op) --> 28 (post-op) Uterine Position/Fundal Height: Umbilicus -2 Uterine Tone: Firm
[2017-04-01] MEDS: FERROUS SULFATE 325 MG TAB PO SCH ×2 (09:38→21:26)
[2017-04-01] MEDS: SENNOSIDES/DOCUSATE SODIUM TAB PO SCH ×2 (09:38→21:26)
[2017-04-01] MEDS: HYDROCODONE/APAP 5/325 TAB PO PRN ×4 (10:12→23:00)
[2017-04-01] MEDS ORDERED: PATCH REMOVAL 1 EA PATCH TD ONE (15:06)
[2017-04-01] MEDS: IBUPROFEN 600 MG TAB PO PRN ×2 (15:33→21:26)
[2017-04-01] MEDS: DOCUSATE SODIUM 100 MG CAP PO PRN (21:25)
[2017-04-02] MEDS: IBUPROFEN 600 MG TAB PO PRN ×4 (02:59→21:50)
[2017-04-02] MEDS: HYDROCODONE/APAP 5/325 TAB PO PRN ×4 (02:59→18:30)
[2017-04-02] MEDS: FERROUS SULFATE 325 MG TAB PO SCH ×2 (08:40→21:50)
[2017-04-02 09:02] VITALS: RESP 18
--- NOTE | 2017-04-02 10:26 | OBPP ---
Progress Note Assessment/Plan: Assessment: 36 y/o POD #2 s/p LTCS secondary to arrest of descent Plan: Ambulate with assistance today. support. APNO cream called in today. Routine POC. 04/02/17 10:24 Subjective/ Course: 03/31/17 18:27 patient is doing well. pain is well controlled. normal lochia. working on breast feeding. tolerating clears. resting in bed. denies headache and changes in vision. 04/01/17 08:18 Patient is resting in bed. . Pain OK with IV meds. Potter anchored. Denies spontaneous flatus. Tolerating PO intake. Minimal lochia/vaginal bleeding. Ambulated out of bed x2 since OR. 04/02/17 10:21 Pt is doing well this am. She has good pain control with po meds. She is ambulating and voiding without difficulty and has min lochia. She has diarrhea yesterday from Colace and Senna, so will back off today. Breast feeding is difficult, but they are working with and tracking baby's bilirubin levels. She wishes to ambulate and shower today. Objective: 04/01/17 05:00 Patient ABO/Rh AB POSITIVE 03/30/17 14:00 Temp Pulse Resp BP Pulse Ox 36.7 C 100 18 88/59 L 96 04/02/17 09:00 04/02/17 09:00 04/02/17 09:00 04/02/17 09:00 04/02/17 09:00 Uterine Position/Fundal Height: Umbilicus -2 Uterine Tone: Firm Physical Exam - Physical Exam Neck: non-tender, full range of motion, supple Respiratory: chest non-tender, lungs clear, normal breath sounds Cardiac/Chest: regular rate, rhythm Abdomen: normal bowel sounds, incision (c/d/i) Extremities: swelling (no), Kera's sign (neg)
[2017-04-02] MEDS: SENNOSIDES/DOCUSATE SODIUM TAB PO SCH ×2 (11:10→21:52)
[2017-04-03] MEDS: HYDROCODONE/APAP 5/325 TAB PO PRN ×4 (01:28→23:10)
[2017-04-03] MEDS: IBUPROFEN 600 MG TAB PO PRN ×4 (04:06→23:10)
[2017-04-03] MEDS: FERROUS SULFATE 325 MG TAB PO SCH ×2 (09:37→23:10)
--- NOTE | 2017-04-03 13:57 | OBPP ---
Progress Note Assessment/Plan: Assessment: [id number] s/p Primary c/s POD#3 diarrhea Plan: Post op care d/c stool softeners BRAT diet ambulate cont / support plan for d/c home tomorrow 04/03/17 13:54 Subjective/ Course: 03/31/17 18:27 patient is doing well. pain is well controlled. normal lochia. working on breast feeding. tolerating clears. resting in bed. denies headache and changes in vision. 04/01/17 08:18 Patient is resting in bed. . Pain OK with IV meds. Potter anchored. Denies spontaneous flatus. Tolerating PO intake. Minimal lochia/vaginal bleeding. Ambulated out of bed x2 since OR. 04/02/17 10:21 Pt is doing well this am. She has good pain control with po meds. She is ambulating and voiding without difficulty and has min lochia. She has diarrhea yesterday from Colace and Senna, so will back off today. Breast feeding is difficult, but they are working with and tracking baby's bilirubin levels. She wishes to ambulate and shower today. 04/03/17 13:56 Pt doing ok. She states she has had episodes of diarrhea, denies any cramps. She is ambulating without difficulty. she is still taking norco PRN. She is working on - due to wt loss will cont to work with . Objective: 04/01/17 05:00 Patient ABO/Rh AB POSITIVE 03/30/17 14:00 Temp Pulse Resp BP Pulse Ox 37.1 C 113 H 18 99/65 L 96 04/02/17 20:00 04/02/17 20:00 04/02/17 20:00 04/02/17 20:00 04/02/17 20:00 Uterine Position/Fundal Height: At Umbilicus, Midline Uterine Tone: Firm
[2017-04-03] MEDS: SENNOSIDES/DOCUSATE SODIUM TAB PO SCH ×2 (19:53→23:17)
[2017-04-03] MEDS: AMPICILLIN SODIUM 1 GM in NS 100 ML IV SCH (19:54)
[2017-04-04] MEDS: HYDROCODONE/APAP 5/325 TAB PO PRN ×3 (03:48→12:34)
[2017-04-04] MEDS: IBUPROFEN 600 MG TAB PO PRN (07:43)
[2017-04-04] MEDS: FERROUS SULFATE 325 MG TAB PO SCH (07:45)
[2017-04-04] MEDS: DOCUSATE SODIUM 100 MG CAP PO PRN (08:32)
[2017-04-04 10:06] VITALS: BP 119/81; PULSE 96; TEMP 97.4; O2SAT 94
[2017-04-04] MEDS: SENNOSIDES/DOCUSATE SODIUM TAB PO SCH ×2 (11:32→11:33)
--- NOTE | 2017-04-04 11:56 | OBGCSDC ---
General Delivery Information - General Info : 1 Para: 1 Abortions: 0 Type: Primary L&D Analgesia/Anesthesia Type: Epidural Admission Date: 03/30/17 Labs: Patient ABO/Rh AB POSITIVE 03/30/17 14:00 Hct 28.0 % (38.0-47.0) L D 04/01/17 05:00 - Hospital Course Antepartum: 40.3 ga today. early US has been with [facility] since early . Anxiety all else within normal limits. Today cervix remains closed thick high and posterior ballotable. Consult with dr. Tati Tomas IOL 90% growth. Patient and family ok with POC IOl. 03/30/17 13:54 03/31/17 06:28 Intrapartum: cytotec 50mcg po x1 . Carbajal bulb placed at 3h after cytotec. exam 1cl/80/-1 cephalic tolerated procedure well. Will begin low dose pitocin per protocol 03/30/17 09:05 Patient came in with a complaint of srom at 0443 clear fluid described. States feeling positive movement. Denies bloody show. Denies regular painful contractions. Due for US today for growth. Will do here for mike and growth 03/30/17 13:51 No change in patient demeanor. Agrees with poc to iol electively at 40.3 weeks ballotable 90% growth closed thick and high 03/30/17 18:12 Feeling menstrual cramping. Coping well ready for carbajal placement. 03/31/17 02:40 doing well with the epidural . Pain well managed 03/31/17 06:25 She is c/o MELVIN, but she already received Tylenol at 0300. 03/31/17 09:10 patient examined at 7 am when i arrived. I examined her and she is 6-7/80/-2. Long discussion with patient. contractions were not adequate. pitocin had been stopped overnight due to tachysystole. havent been adequate yet. patient is exhausted but comfortable. has been able to sleep. discussed management options. will continue to increase pitocin and reexamine in several hours or sooner if indicated. 03/31/17 11:24 pitocin is at 20 mu. having regular contractions with occasional spacing. IUPC doesnt seem to be adequately calculating MVU's. SVE 6/80/-2. long discussion with patient about options. patient is ready to be done. discussed status is reassuring but we are having a hard time getting contractions adequate. does not want to continue trying. desires PLTCS. due to suspected CPD will proceed with PLTCS. : 03/31/17 18:27 patient is doing well. pain is well controlled. normal lochia. working on breast feeding. tolerating clears. resting in bed. denies headache and changes in vision. 04/01/17 08:18 Patient is resting in bed. . Pain OK with IV meds. Carbajal anchored. Denies spontaneous flatus. Tolerating PO intake. Minimal lochia/vaginal bleeding. Ambulated out of bed x2 since OR. 04/02/17 10:21 Pt is doing well this am. She has good pain control with po meds. She is ambulating and voiding without difficulty and has min lochia. She has diarrhea yesterday from Colace and Senna, so will back off today. Breast feeding is difficult, but they are working with and tracking baby's bilirubin levels. She wishes to ambulate and shower today. 04/03/17 13:56 Pt doing ok. She states she has had episodes of diarrhea, denies any cramps. She is ambulating without difficulty. she is still taking norco PRN. She is working on - due to wt loss will cont to work with . 04/04/17 11:51 Pt is doing well. She has good pain control with [place] and Ibuprofen. She is ambulating and voiding and her diarrhea resolved. She is breast feeding well and baby is doing well. They are ready to d/c home. O; WD/WN W female NAD Chest: CTA B CV: RRR no murmur Abd: soft. ND/NT nml BS Uff U-2, incision c/d/i Ext: no edema, neg Kera's A/p: 36 y/o POD #4 s/p LTCS secondary to arrest of descent doing well 1 D/c home today with Rx [place] and Ibuprofen 2 RTO 2, 4 and 6 weeks 04/04/17 11:54 Vaginal - Diagnosis Amniotic Fluid Color: Clear - Delivery Providers Surgeon: Ling Francis Divider Operator: Virginia Hoover Anesthesiologist: Siva Doherty - Delivery Indications for Current Section: Arrest of Descent, Arrest of Dilation Intra-op Complications: Nucal Cord, Other (Specify) (post atony treated with methergine x 1, distended bladder) EBL: 1000 Spring Data Gonzalez Delivery Date: 03/31/17 Delivery Time: 11:56 CY: 03/27/17 Gestational Age: 41 week(s) and 1 day(s) Sex of : Female [place] Weight (gm): 3676 kg Score (1 Min): 8 Score (5 Min): 9 Discharge Information - Discharge Information Prescriptions: Hydrocodone/APAP 5/325 [[place] 5/325 (*)] 1 - 2 tab PO Q4HRS PRN #30 tab PRN Reason: Pain, Moderate Ibuprofen [Motrin (*)] 600 mg PO Q6HRS PRN #30 tab PRN Reason: post , inflammation Instruction/Follow Up: Two Weeks, Four Weeks, Six Weeks
== END 2017-04-04 13:15 | disposition home or self-care (01) | DRG 766 ==
LOC: FLD 08:34 → OBSVTOIN 13:47 → FOB 03-31 15:39
PROVIDERS: ADMIT Advanced Practice Midwife; ATTEND Advanced Practice Midwife
DX: O62.1 Secondary uterine inertia (principal); Z37.0 Single live birth; Z3A.40 40 weeks gestation of pregnancy; O99.824 Streptococcus B carrier state complicating childbirth; O36.63X0 Maternal care for excessive fetal growth, third trimester, not applicable or unspecified
CPT/HCPCS: J0290; J0690; J1100; J1885; J2274; J2370; J2405; J2550; J2590; J3010; J3105

== ENCOUNTER → 2017-04-07 | Outpatient (CLI) | payer OTHER | LOC: FLACT 12:39 | PROVIDERS: ATTEND Obstetrics & Gynecology | DX: Z39.1 Encounter for care and examination of lactating mother (principal) | CPT/HCPCS: G0463 ==

== ENCOUNTER 2017-06-18 13:25 | Emergency (ER) | payer OTHER ==
[2017-06-18 13:32] VITALS: TEMP 99
[2017-06-18] MEDS ORDERED: ONDANSETRON 4 MG/2 ML VIAL IVP ONE (13:56)
[2017-06-18] MEDS ORDERED: NS 1,000 ML IV ONE ×2 (13:56→14:43)
--- NOTE | 2017-06-18 14:07 | EDPHY ---
H & P Time Seen by Provider: 06/18/17 13:49 HPI/ROS: CHIEF COMPLAINT: Vomiting, diarrhea HISTORY OF PRESENT ILLNESS: 36-year-old female presents to the emergency department by private vehicle with multiple episodes vomiting and diarrhea that began early this morning. Patient states that she was a woken up out of her sleep around 3:00 a.m. with vomiting. She vomits tonight and then had a few episodes of watery diarrhea. No hematemesis or blood in her stool. No recent travel. Her had similar symptoms 2 days ago and his symptoms have since resolved. She thinks she has urinated once this morning. She is times 11 weeks and is currently nursing. She was able to pump just prior to arrival and obtained 3 oz of breast milk. No fevers or chills. No abdominal pain. No urinary symptoms. No back pain. REVIEW OF SYSTEMS: Constitutional: No fever, no chills. Eyes: No double or blurry vision. ENT: No sore throat. Respiratory: No cough, no shortness of breath. Cardiac: No chest pain. Gastrointestinal: Vomiting, diarrhea as above Genitourinary: No dysuria. Musculoskeletal: No neck or back pain. Skin: No rashes. Neurological: No headache. Past Medical/Surgical History: Anemia, cholecystectomy, 11 weeks ago Social History: Smoking Status: Never smoked Physical Exam: General Appearance: Alert, no distress. Afebrile. Eyes: Pupils equal and round. Extraocular motions are all intact. ENT: Mouth: Mucous membranes moist. Respiratory: No wheezing, rhonchi, or rales, lungs are clear to auscultation. Cardiovascular: Regular rate and rhythm. Tachycardic. Gastrointestinal: Abdomen is soft and nontender, no masses, no rebound or guarding, bowel sounds normal. Neurological: Alert and oriented x 3, cranial nerves II through XII grossly intact Skin: Warm and dry, no rashes. Musculoskeletal: Nontender to palpate along the cervical, thoracic or lumbar spine. Neck is supple. Extremities: Full range of motion and no peripheral edema. Psychiatric: Patient is oriented X 3, there is no agitation. Constitutional: Initial Vital Signs Temperature (C) 37.2 C 06/18/17 13:30 Heart Rate 122 H 06/18/17 13:30 Respiratory Rate 17 06/18/17 13:30 Blood Pressure 107/75 06/18/17 13:30 O2 Sat (%) 95 06/18/17 13:30 O2 Delivery Mode Room Air Allergies/Adverse Reactions: No Known Allergies Allergy (Verified 06/18/17 13:29) Home Medications: Medication Instructions Recorded Ondansetron Odt [Zofran Odt] 4 mg PO Q4PRN #8 tab 06/18/17 Medical Decision Making ED Course/Re-evaluation: An IV was established and patient had laboratory studies drawn. The patient was given IV normal saline as well as IV Zofran for her nausea. Patient was tolerating p.o. fluids upon discharge is comfortable being discharged home. She was given prescription for additional Zofran as needed for symptoms of nausea or vomiting. She was encouraged to return to the emergency department if she developed recurring vomiting, fever, or if she felt worse in any way. I do not think imaging studies are indicated. She has an abdomen that is nontender. Differential Diagnosis: Including but not limited to gastroenteritis, dehydration, electrolyte abnormality, bowel obstruction, acute appendicitis, GERD, peptic ulcer disease - Data Points Laboratory Results: Laboratory Results 06/18/17 14:10 06/18/17 14:10 06/18/17 06/18/17 14:10 14:10 WBC 9.77 10^3/uL H 10^3/uL (3.80-9.50) RBC 5.04 10^6/uL 10^6/uL (4.18-5.33) Hgb 15.4 g/dL g/dL (12.6-16.3) Hct 42.7 % % (38.0-47.0) MCV 84.7 fL fL (81.5-99.8) MCH 30.6 pg pg (27.9-34.1) MCHC 36.1 g/dL g/dL (32.4-36.7) RDW 13.1 % % (11.5-15.2) Plt Count 350 10^3/uL 10^3/uL (150-400) MPV 9.3 fL fL (8.7-11.7) Neut % (Auto) 95.1 % H % (39.3-74.2) Lymph % (Auto) 2.4 % L % (15.0-45.0) Ada % (Auto) 2.0 % L % (4.5-13.0) Eos % (Auto) 0.1 % L % (0.6-7.6) Baso % (Auto) 0.2 % L % (0.3-1.7) Nucleat RBC Rel Count 0.0 % % (0.0-0.2) Absolute Neuts (auto) 9.29 10^3/uL H 10^3/uL (1.70-6.50) Absolute Lymphs (auto) 0.23 10^3/uL L 10^3/uL (1.00-3.00) Absolute Monos (auto) 0.20 10^3/uL L 10^3/uL (0.30-0.80) Absolute Eos (auto) 0.01 10^3/uL L 10^3/uL (0.03-0.40) Absolute Basos (auto) 0.02 10^3/uL 10^3/uL (0.02-0.10) Absolute Nucleated RBC 0.00 10^3/uL 10^3/uL (0-0.01) Immature Gran % 0.2 % % (0.0-1.1) Immature Gran # 0.02 10^3/uL 10^3/uL (0.00-0.10) Sodium 141 mEq/L mEq/L (134-144) Potassium 4.1 mEq/L mEq/L (3.5-5.2) Chloride 103 mEq/L mEq/L (97-110) Carbon Dioxide 21 mEq/l L mEq/l (22-31) Anion Gap 17 mEq/L H mEq/L (8-16) BUN 20 mg/dL mg/dL (7-23) Creatinine 0.9 mg/dL mg/dL (0.6-1.0) Estimated GFR > 60 Glucose 114 mg/dL H mg/dL (70-100) Calcium 9.5 mg/dL mg/dL (8.5-10.4) Medications Given: Discontinued Medications Sodium Chloride (Ns) 1,000 mls @ 0 mls/hr IV ONCE ONE PRN Reason: Wide Open Stop: 06/18/17 13:57 Last Admin: 06/18/17 14:07 Dose: 1,000 mls Sodium Chloride (Ns) 1,000 mls @ 0 mls/hr IV ONCE ONE PRN Reason: Wide Open Stop: 06/18/17 14:44 Last Admin: 06/18/17 14:48 Dose: 1,000 mls Ondansetron HCl (Zofran) 4 mg IVP EDNOW ONE Stop: 06/18/17 13:57 Last Admin: 06/18/17 14:07 Dose: 4 mg Departure - Departure Disposition: Home, Routine, Self-Care Clinical Impression: Acute gastroenteritis Condition: Good Instructions: Gastroenteritis (ED) Additional Instructions: Clear liquids and then slowly advance diet as tolerated. [facility]errals: [facility] [Other] - 1 day, if not improved Prescriptions: Ondansetron Odt [Zofran Odt] 4 mg PO Q4PRN #8 tab
[2017-06-18 14:18] LABS: PLATELET COUNT 350 10^3/uL (150-400)
[2017-06-18 14:42] VITALS: RESP 16
[2017-06-18 16:01] VITALS: BP 105/72; PULSE 106; O2SAT 93
== END 2017-06-18 15:58 | disposition home or self-care (01) ==
DX: K52.9 Noninfective gastroenteritis and colitis, unspecified (principal)
CPT/HCPCS: 96374; J2405

== ENCOUNTER 2018-12-11 01:40 | Observation (INO) | payer OTHER | END 2018-12-11 21:26 | disposition home or self-care (01) | LOC: FOB 07:50 ==